=== PATIENT | female | born 1985 | race American Indian/Alaskan Native ===

== ENCOUNTER 2016-08-16 07:39 | Emergency (ER) | payer BC ==
[2016-08-16 07:50] VITALS: BMI 28.3
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
[2016-08-16] MEDS ORDERED: Lidocaine 5% Patch TD SCH (10:00)
[2016-08-16 10:16] VITALS: BP 144/82; PULSE 80; RESP 18; TEMP 98; O2SAT 98
== END 2016-08-16 11:06 | disposition home or self-care (01) ==
LOC: ED 07:39
DX: S39.012A Strain of muscle, fascia and tendon of lower back, initial encounter (principal); X50.9XXA Other and unspecified overexertion or strenuous movements or postures, initial encounter; Y93.89 Activity, other specified; Y92.009 Unspecified place in unspecified non-institutional (private) residence as the place of occurrence of the external cause
CPT/HCPCS: 96372; 99283; J1885

== ENCOUNTER 2016-11-22 21:07 | Emergency (ER) | payer SELFPAY ==
[2016-11-22 21:07] VITALS: BMI 28.3
[2016-11-22 21:15] VITALS: TEMP 98.6
--- NOTE | 2016-11-22 21:52 | ED PDOC ---
Arrival/HPI - General Chief Complaint: Dental Pain Time Seen by Provider: 11/22/16 21:34 Historian: Patient - History of Present Illness Narrative History of Present Illness (Text): 11/22/16 21:48 This 31 yo female presents to this ED c/o toothache x 7 days. Tooth ache is worse today. Denies other complains. Time/Duration: 1 week Quality: Aching Context: Home Past Medical History - Provider Review Nursing Documentation Reviewed: Yes - Past History Past History: No Previous - Infectious Disease Hx of Infectious Diseases: None - Tetanus Immunization Tetanus Immunization: Unknown - Reproductive Menopause: No - Past Medical History Past Medical History: No Previous - Cardiac Hx Cardiac Disorders: No - Pulmonary Hx Respiratory Disorders: No - Neurological Hx Neurological Disorder: No - HEENT Hx HEENT Disorder: No - Renal Hx Renal Disorder: No - Endocrine/Metabolic Hx Endocrine Disorders: No - Hematological/Oncological Hx Blood Disorders: No - Integumentary Hx Dermatological Disorder: No - Musculoskeletal/Rheumatological Hx Musculoskeletal Disorders: Yes Hx Herniated Disk: Yes - Gastrointestinal Hx Gastrointestinal Disorders: No - Genitourinary/Gynecological Hx Genitourinary Disorders: No - Psychiatric Hx Psychophysiologic Disorder: Yes Hx Anxiety: Yes Hx Depression: Yes Hx Substance Use: No - Surgical History Hx Section: Yes (x2) - Anesthesia Hx Anesthesia: Yes Hx Anesthesia Reactions: Yes Hx Malignant Hyperthermia: No - Suicidal Assessment Feels Threatened In Home Enviroment: No Family/Social History - Physician Review Nursing Documentation Reviewed: Yes Family/Social History: No Known Family HX Smoking Status: Former Smoker Hx Alcohol Use: No Hx Substance Use: No Hx Substance Use Treatment: No Allergies/Home Meds Allergies/Adverse Reactions: Allergies No Known Allergies Allergy (Verified 11/22/16 21:14) Review of Systems - Review of Systems Constitutional: Normal. absent: Fatigue, Weight Change, Fevers Eyes: Normal ENT: Other (dental pain) Respiratory: Normal Cardiovascular: Normal Gastrointestinal: Normal Genitourinary Female: Normal Musculoskeletal: Normal Skin: Normal Neurological: Normal Endocrine: Normal Hemo/Lymphatic: Normal Psychiatric: Normal Physical Exam Vital Signs Temp Pulse Resp BP Pulse Ox 11/22/16 22:25 81 16 131/72 100 11/22/16 21:11 98.6 F 79 20 137/91 H 99 Temperature: Afebrile Blood Pressure: Normal Pulse: Regular Respiratory Rate: Normal Appearance: Positive for: Well-Appearing, Non-Toxic, Comfortable Pain Distress: None Mental Status: Positive for: Alert and Oriented X 3 - Systems Exam Head: Present: Atraumatic, Normocephalic Pupils: Present: PERRL Extroacular Muscles: Present: EOMI Conjunctiva: Present: Normal Mouth: Present: Moist Mucous Membranes, Normal Lips, Normal Tounge, Other ( generalized dental caries. no denatl abscess). No: Drooling Pharnyx: Present: Normal. No: ERYTHEMA, EXUDATE, TONSILS ENLARGED Neck: Present: Normal Range of Motion Respiratory/Chest: Present: Clear to Auscultation, Good Air Exchange. No: Respiratory Distress, Accessory Muscle Use Cardiovascular: Present: Regular Rate and Rhythm, Normal S1, S2. No: Murmurs Abdomen: Present: Normal Bowel Sounds. No: Tenderness, Distention, Peritoneal Signs, Rebound, Guarding Upper Extremity: Present: Normal Inspection, Normal ROM, Neurovascularly Intact , Capillary Refill < 2s Lower Extremity: Present: Normal Inspection, NORMAL PULSES, Normal ROM, Capillary Refill < 2 s. No: Edema Neurological: Present: GCS=15, CN II-XII Intact, Speech Normal, Motor Func Grossly Intact, Normal Sensory Function, Normal Cerebellar Funct, Gait Normal Skin: Present: Warm, Dry, Normal Color. No: Rashes Psychiatric: Present: Alert, Oriented x 3 Medical Decision Making ED Course and Treatment: 11/22/16 21:53 Patient appear drug seeking behavior. I spoke with Dr. Mcgee, and reviewed [place] [employer]. Patient has had at least 4 Opiods pain medication within last year. Dr. Mcgee agreed to give 4 tabs of Percocet, and have patient see dentist tomorrow. Dental examination demonstrates generalized dental caries, appears chronic, no dental abscess, no gun swelling or gingivitis, no facial swelling. Re-evaluation Time: 21:55 Reassessment Condition: Re-examined, Improved - Medication Orders Current Medication Orders: Discontinued Medications Clindamycin HCl (Cleocin) 300 mg PO STAT STA PRN Reason: Protocol Stop: 11/22/16 22:03 Last Admin: 11/22/16 22:22 Dose: 300 mg Ketorolac Tromethamine (Toradol) 15 mg IM STAT STA Stop: 11/22/16 22:03 Last Admin: 11/22/16 22:22 Dose: 15 mg Disposition/Present on Arrival - Present on Arrival Any Indicators Present on Arrival: No History of DVT/PE: No History of Uncontrolled Diabetes: No Urinary Catheter: No History of Decub. Ulcer: No History Surgical Site Infection Following: None - Disposition Have Diagnosis and Disposition been Completed?: Yes Diagnosis: Pain due to dental caries, Drug-seeking behavior Disposition: HOME/ ROUTINE Disposition Time: 21:58 Patient Plan: Discharge Condition: GOOD Discharge Instructions (ExitCare): Dental Caries (ED), Toothache (ED) Additional Instructions: Call dentist office for tomorrow for further evaluation. Take medication as instructed. Prescriptions: Chlorhexidine 0.12% [Peridex] 15 ml PO BID #1 bottle Clindamycin [Cleocin] 300 mg PO TID #20 cap oxyCODONE/Acetaminophen [Percocet 5/325 mg Tab] 1 ea PO BID PRN #4 tab PRN Reason: Pain, Severe (8-10) Referrals: Power Levi MD [Primary Care Provider] - Follow up with primary
[2016-11-22 23:21] VITALS: BP 131/72; PULSE 81; RESP 16; O2SAT 100
== END 2016-11-22 22:25 | disposition home or self-care (01) ==
LOC: ED 21:07
DX: K02.9 Dental caries, unspecified (principal); Z76.5 Malingerer [conscious simulation]
CPT/HCPCS: 96372; 99282; J1885

== ENCOUNTER 2016-11-23 12:51 | Emergency (ER) | payer SELFPAY ==
[2016-11-23 12:51] VITALS: BMI 28.3
--- NOTE | 2016-11-23 13:07 | ED PDOC ---
Arrival/HPI - General Chief Complaint: Dental Pain Time Seen by Provider: 11/23/16 12:56 Historian: Patient - History of Present Illness Narrative History of Present Illness (Text): 11/23/16 13:04 31yo female present with biba for toothache x 8days. She was seen here last night and DC home with pain medication and Clindamycin. she claimed that she couldn't afford it so she came to the ED. Denies any other complaint. Past Medical History - Provider Review Nursing Documentation Reviewed: Yes - Past History Past History: No Previous - Infectious Disease Hx of Infectious Diseases: None - Tetanus Immunization Tetanus Immunization: Unknown - Past Medical History Past Medical History: No Previous - Cardiac Hx Cardiac Disorders: No - Pulmonary Hx Respiratory Disorders: No - Neurological Hx Neurological Disorder: No - HEENT Hx HEENT Disorder: No - Renal Hx Renal Disorder: No - Endocrine/Metabolic Hx Endocrine Disorders: No - Hematological/Oncological Hx Blood Disorders: No - Integumentary Hx Dermatological Disorder: No - Musculoskeletal/Rheumatological Hx Musculoskeletal Disorders: Yes Hx Herniated Disk: Yes - Gastrointestinal Hx Gastrointestinal Disorders: No - Genitourinary/Gynecological Hx Genitourinary Disorders: No - Psychiatric Hx Psychophysiologic Disorder: Yes Hx Anxiety: Yes Hx Depression: Yes Hx Substance Use: No - Surgical History Hx Section: Yes (x2) - Anesthesia Hx Anesthesia: Yes Hx Anesthesia Reactions: Yes Hx Malignant Hyperthermia: No - Suicidal Assessment Feels Threatened In Home Enviroment: No Family/Social History - Physician Review Nursing Documentation Reviewed: Yes Family/Social History: Unknown Family HX Smoking Status: Former Smoker Hx Alcohol Use: No Hx Substance Use: No Hx Substance Use Treatment: No Allergies/Home Meds Allergies/Adverse Reactions: Allergies No Known Allergies Allergy (Verified 11/22/16 21:14) Review of Systems - Physician Review All systems were reviewed & negative as marked: Yes - Review of Systems Constitutional: Normal Eyes: Normal ENT: Other (Toothache) Respiratory: Normal Cardiovascular: Normal Gastrointestinal: Normal Genitourinary Female: Normal Musculoskeletal: Normal Skin: Normal Neurological: Normal Endocrine: Normal Hemo/Lymphatic: Normal Psychiatric: Normal Physical Exam Vital Signs Reviewed: Yes Temperature: Afebrile Blood Pressure: Normal Pulse: Regular Respiratory Rate: Normal Appearance: Positive for: Well-Appearing, Non-Toxic, Comfortable Pain Distress: None Mental Status: Positive for: Alert and Oriented X 3 - Systems Exam Head: Present: Atraumatic, Normocephalic Pupils: Present: PERRL Extroacular Muscles: Present: EOMI Conjunctiva: Present: Normal Mouth: Present: Moist Mucous Membranes, Other (Poor dentition in general. No gingival swelling noted) Neck: Present: Normal Range of Motion Respiratory/Chest: Present: Clear to Auscultation, Good Air Exchange. No: Respiratory Distress, Accessory Muscle Use Cardiovascular: Present: Regular Rate and Rhythm, Normal S1, S2. No: Murmurs Abdomen: Present: Normal Bowel Sounds. No: Tenderness, Distention, Peritoneal Signs Back: Present: Normal Inspection Upper Extremity: Present: Normal Inspection. No: Cyanosis, Edema Lower Extremity: Present: Normal Inspection. No: Edema Neurological: Present: GCS=15, CN II-XII Intact, Speech Normal Skin: Present: Warm, Dry, Normal Color. No: Rashes Psychiatric: Present: Alert, Oriented x 3, Normal Insight, Normal Concentration Medical Decision Making ED Course and Treatment: 11/23/16 13:15 Pt's chart from last night was reviewed. She was seen here for same dental caries and was DC home with #4tabs of Percocet and clindamycin. Her [place] RX reviewed indicated 6opids refill within a year and drug seeking behavior was suspected. PT was clearly advised today that she will not get opids for her pain in ED. She kept exhibiting drug seeking behavior. She will be treated with Toradol and clindamycin and DC home. she was advised to f/u with [facility] or [facility] . - Medication Orders Current Medication Orders: Clindamycin HCl (Cleocin) 300 mg PO STAT STA PRN Reason: Protocol Stop: 11/23/16 13:03 Ketorolac Tromethamine (Toradol) 60 mg IM STAT STA Stop: 11/23/16 13:03 Disposition/Present on Arrival - Present on Arrival Any Indicators Present on Arrival: No History of DVT/PE: No History of Uncontrolled Diabetes: No Urinary Catheter: No History of Decub. Ulcer: No History Surgical Site Infection Following: None - Disposition Have Diagnosis and Disposition been Completed?: Yes Diagnosis: Dental caries Disposition: HOME/ ROUTINE Disposition Time: 13:10 Patient Plan: Discharge Condition: STABLE Discharge Instructions (ExitCare): Dental Caries (ED) Additional Instructions: Fill out your prescription and follow up with a Dentist Return to ED for any symptoms Referrals: Dilshad Villavicencio, LO [Non-Staff] - Follow up with primary
[2016-11-23 13:10] VITALS: RESP 18; TEMP 98.7
[2016-11-23 14:57] VITALS: BP 134/66; PULSE 72; O2SAT 99
== END 2016-11-23 13:45 | disposition home or self-care (01) ==
LOC: ED 12:51
DX: K02.9 Dental caries, unspecified (principal)
CPT/HCPCS: 96372; 99282; J1885

== ENCOUNTER 2017-03-13 18:13 | Emergency (ER) | payer BC ==
[2017-03-13 18:23] VITALS: TEMP 98.3; BMI 27.4
[2017-03-13] MEDS ORDERED: Sodium Chloride 0.9% 1,000 ML IV STA (18:43)
[2017-03-13 18:54] LABS: URINE BILIRUBIN NEGATIVE (NEGATIVE); URINE BLOOD LARGE (NEGATIVE); URINE GLUCOSE (UA) NEGATIVE (NEGATIVE); URINE KETONE TRACE mg/dL (NEGATIVE); URINE LEUKOCYTE ESTERASE NEGATIVE Leu/uL (NEGATIVE); URINE PROTEIN 30 mg/dL (<30 mg/dL); URINE UROBILINOGEN 0.2 E.U./dL (<1 E.U./dL)
--- NOTE | 2017-03-13 18:54 | ED PDOC ---
Arrival/HPI - General Chief Complaint: Female Genitourinary Time Seen by Provider: 03/13/17 18:18 Historian: Patient - History of Present Illness Narrative History of Present Illness (Text): 03/13/17 18:51 31yr old presents today with vaginal bleeding and lower abdominal cramping that started today. pt states she has been on PCN and tylenol #3 for recent dental surgery 5 days ago. pt states her LMP was Jan 05. pt states she was questioning terminating the but has not made a final decision yet. pt denies fever/chills. denies urinary symptoms. no cp or sob. no vomiting/diarrhea , + occasional nausea. no dizziness or weakness. no other complaints. Symptom Onset: Sudden Symptom Course: Unchanged Quality: Cramping Severity Level: 4 Past Medical History - Provider Review Nursing Documentation Reviewed: Yes - Travel History Have you recently traveled outside [place] w/in the past 3 mons?: No - Past History Past History: No Previous - Infectious Disease Hx of Infectious Diseases: None - Tetanus Immunization Tetanus Immunization: Unknown - Past Medical History Past Medical History: No Previous - Cardiac Hx Cardiac Disorders: No - Pulmonary Hx Respiratory Disorders: No - Neurological Hx Neurological Disorder: No - HEENT Hx HEENT Disorder: No - Renal Hx Renal Disorder: No - Endocrine/Metabolic Hx Endocrine Disorders: No - Hematological/Oncological Hx Blood Disorders: No - Integumentary Hx Dermatological Disorder: No - Musculoskeletal/Rheumatological Hx Musculoskeletal Disorders: Yes Hx Herniated Disk: Yes - Gastrointestinal Hx Gastrointestinal Disorders: No - Genitourinary/Gynecological Hx Genitourinary Disorders: No - Psychiatric Hx Psychophysiologic Disorder: Yes Hx Anxiety: Yes Hx Depression: Yes Hx Substance Use: No - Surgical History Hx Section: Yes (x2) - Anesthesia Hx Anesthesia: Yes Hx Anesthesia Reactions: Yes Hx Malignant Hyperthermia: No - Suicidal Assessment Feels Threatened In Home Enviroment: No Family/Social History - Physician Review Nursing Documentation Reviewed: Yes Family/Social History: Unknown Family HX Smoking Status: Current Some Days Smoker Hx Alcohol Use: No Hx Substance Use: No Hx Substance Use Treatment: No Allergies/Home Meds Allergies/Adverse Reactions: Allergies No Known Allergies Allergy (Verified 03/13/17 18:22) Home Medications: Home Meds Medication Instructions Recorded Confirmed Penicillin VK [Penicillin VK Tab] 250 mg PO BID 03/13/17 03/13/17 Review of Systems - Review of Systems Constitutional: absent: Fatigue, Fevers Respiratory: absent: SOB, Cough Cardiovascular: absent: Chest Pain, Palpitations Gastrointestinal: Abdominal Pain, Nausea. absent: Constipation, Diarrhea, Vomiting Genitourinary Female: Vaginal Bleeding. absent: Dysuria, Frequency, Hematuria, Vaginal Discharge Musculoskeletal: absent: Arthralgias, Back Pain, Neck Pain Skin: absent: Rash, Pruritis Neurological: absent: Headache, Dizziness Psychiatric: absent: Anxiety, Depression Physical Exam Vital Signs Reviewed: Yes Vital Signs Temp Pulse Resp BP Pulse Ox 03/13/17 21:00 67 18 120/70 100 03/13/17 19:42 78 18 108/61 100 03/13/17 18:22 98.3 F 89 16 110/72 98 Temperature: Afebrile Blood Pressure: Normal Pulse: Regular Respiratory Rate: Normal Appearance: Positive for: Well-Appearing, Non-Toxic, Comfortable Pain Distress: None Mental Status: Positive for: Alert and Oriented X 3 - Systems Exam Head: Present: Atraumatic Neck: Present: Normal Range of Motion Respiratory/Chest: Present: Clear to Auscultation, Good Air Exchange. No: Respiratory Distress, Accessory Muscle Use Cardiovascular: Present: Regular Rate and Rhythm, Normal S1, S2. No: Murmurs Abdomen: Present: Tenderness (minimal suprapubic tenderness), Normal Bowel Sounds, Scars ( scar). No: Distention, Peritoneal Signs, Rebound, Guarding Genitourinary/Pelvic Exam: Present: Normal External Genitalia, Vaginal Bleeding (minimal amount of bloody discharge noted), Cervical os Closed, Other ( chaparoned by Sheldon Rodriguez; ). No: Vaginal Discharge, Vaginal Lesions, Adenexal Tenderness, Adenexal Mass, Cervical Motion Tendernes, Odor Neurological: Present: GCS=15 Skin: Present: Warm, Dry, Normal Color. No: Rashes Psychiatric: Present: Alert, Oriented x 3 Medical Decision Making ED Course and Treatment: 03/13/17 19:37 Patient is nontoxic well appearing in no distress. vital signs are stable. CBC wnl CMP wnl Beta hCG 4861.80 TYPE AND SCREEN: o+ Urinalysis: + trace ketones, large blood, mod bacteria, no leukocytes Ultrasound: FINDINGS: Gestation: A single intrauterine gestational sac is identified with pole. No heart motion is visualized. The estimated gestational age is 8 weeks 5 days. Placenta/amniotic fluid: Cannot be adequately evaluated due to the early gestational age. Uterus/cervix: The uterus measures 8.7 x 7.0 x 7.7 cm. The cervical length is 3.3 cm. No myometrial mass. Ovaries: The left ovary measures 4.1 x 2.1 x 2.2 cm. Within the left ovary, there is a thick walled complex cyst or corpus luteum cyst measuring 2.4 x 2.0 x 1.9 cm. Free fluid: There is trace free fluid within the cul-de-sac. Other findings: The right or right measures 3.4 x 2.2 x 1.8 cm. IMPRESSION: 1. A single intrauterine gestational sac is identified with pole. No heart motion is visualized. The findings are diagnostic of failure based on the U Multispecialty Consensus 2. There is trace free fluid within the cul-de-sac. 3. The estimated gestational age is 8 weeks 5 days. 4. Within the left ovary, there is a thick walled complex cyst or corpus luteum cyst measuring 2.4 x 2.0 x 1.9 cm. Case discussed with dr. Berman; discussed demise; he advised having patient f/u with MANUFACTURERS REPRESENTATIVE tomorrow/ within 2 days. Discussed all the results the patient stressed importance of f/u with MANUFACTURERS REPRESENTATIVE tomorrow. advised immediate return if symptoms worsen,persist or if new symptoms develop. pt verbalized understand of d/c instruction and need for IMMEDIATE f/u with MANUFACTURERS REPRESENTATIVE. pt states her MANUFACTURERS REPRESENTATIVE is dr. Dereck duke. she will call her tomorrow to schedule appointment. Impression: demise, UTI Tylenol every 4 hours as needed for pain Increase fluids Nitrofurantoin; 1 tablet twice daily x 10 days Followup with her occupational therapy director tomorrow. Return immediately if symptoms worsen persist or if new symptoms develop: High fevers, heavy bleeding, severe abdominal pain, vomiting, diarrhea, dizziness or weakness or any other concerning symptoms develop. - Lab Interpretations Lab Results: 03/13/17 19:00 03/13/17 19:00 Lab Results 03/13/17 19:00: WBC 7.1, RBC 3.43 L, Hgb 10.6 L, Hct 31.2 L, MCV 91.0, MCH 30.9 , MCHC 34.0, RDW 12.7, Plt Count 300, MPV 8.8, Gran % 52.7, Lymph % (Auto) 41.8 H, [place] % (Auto) 3.4, Eos % (Auto) 2.0, Baso % (Auto) 0.1, Gran # 3.72, Lymph # 3.0, [place] # 0.2, Eos # 0.1, Baso # 0.01 03/13/17 19:00: Blood Type O POSITIVE, Antibody Screen Negative, BBK History Checked Patient has bt 03/13/17 19:00: Beta HCG, Quant 4861.80 H 03/13/17 19:00: Sodium 142, Potassium 4.2, Chloride 107, Carbon Dioxide 26, Anion Gap 13, BUN 12, Creatinine 0.7, Est GFR ( Amer) > 60, Est GFR (Non- Af Amer) > 60, Random Glucose 78, Calcium 9.6, Total Bilirubin 0.3, AST 21, ALT 24, Alkaline Phosphatase 36 L, Total Protein 7.0, Albumin 4.3, Globulin 2.7, Albumin/Globulin Ratio 1.6 03/13/17 18:50: Urine Color Yellow, Urine Appearance Sl cloudy, Urine pH 6.0, Ur Specific [place] 1.025, Urine Protein 30 H, Urine Glucose (UA) Negative, Urine Ketones Trace H, Urine Blood Large H, Urine Nitrate Negative, Urine Bilirubin Negative, Urine Urobilinogen 0.2, Ur Leukocyte Esterase Negative, Urine RBC 2 - 5, Urine WBC 0 - 2, Ur Epithelial Cells 10 - 12, Urine Bacteria Mod - RAD Interpretation Radiology Orders: 03/13/17 19:14 OB TRANSVAGINAL [US] Stat - Medication Orders Current Medication Orders: Discontinued Medications Acetaminophen (Tylenol 325mg Tab) 975 mg PO STAT STA Stop: 03/13/17 18:55 Last Admin: 03/13/17 19:05 Dose: 975 mg MAR Pain/Vitals Document 03/13/17 19:05 CNR (Rec: 03/13/17 19:05 CNR [id number] Pain Reassessment Is This A Pain ReAssessment? Yes Sleep Is patient sleeping during reassessment? No Presence of Pain Presence of Pain Yes Pain Scale Used Pain Scale Used Numeric Location Upper or Lower Lower Pain Location Body Site Abdomen Description Constant Intensity 6 Scale Used Numeric Sodium Chloride (Sodium Chloride 0.9%) 1,000 mls @ 999 mls/hr IV .Q1H1M STA Stop: 03/13/17 19:43 Last Admin: 03/13/17 19:05 Dose: 999 mls/hr eMAR Start Stop Document 03/13/17 19:05 CNR (Rec: 03/13/17 19:06 [place]NR [facility] [email or web address] Intravenous Solution Start Date 03/13/17 Start Time 19:06 Disposition/Present on Arrival - Present on Arrival Any Indicators Present on Arrival: No History of DVT/PE: No History of Uncontrolled Diabetes: No Urinary Catheter: No History of Decub. Ulcer: No History Surgical Site Infection Following: None - Disposition Have Diagnosis and Disposition been Completed?: Yes Diagnosis: demise, UTI (urinary tract infection) Disposition: HOME/ ROUTINE Disposition Time: 21:16 Patient Plan: Discharge Patient Problems: Current Active Problems Problem Status Onset demise Acute UTI (urinary tract infection) Acute Condition: GOOD Discharge Instructions (ExitCare): Urinary Tract Infection in Women (ED) Additional Instructions: Tylenol every 4 hours as needed for pain nitrofurantoin; 1 tablet twice daily x 10 days Increase fluids Followup with her occupational therapy director tomorrow. Return immediately if symptoms worsen persist or if new symptoms develop: High fevers, heavy bleeding, severe abdominal pain, vomiting, diarrhea, dizziness or weakness or any other concerning symptoms develop. Prescriptions: Nitrofurantoin Macrocrystals [Macrobid] 100 mg PO BID #20 cap Referrals: Power Levi MD [Primary Care Provider] - Follow up with primary [facility] [place] [facility] [place] - [facility] with [facility]] - Follow up with primary Melchor Berman MD [Staff Provider] - Follow up with primary Forms: [employer] (E[place]ian), WORK NOTE
[2017-03-13 18:55] LABS: URINE APPEARANCE SL CLOUDY (CLEAR); URINE COLOR YELLOW (YELLOW)
[2017-03-13 19:03] LABS: URINE BACTERIA MOD (NEG); URINE WBC 0 - 2 /hpf (0-6)
[2017-03-13 19:13] LABS: BASO # 0.01 K/mm3 (0.0-2.0); BASO % 0.1 % (0.0-3.0); EOS # 0.1 (0.0-0.7); GRAN # 3.72 (1.4-6.5); GRAN % 52.7 % (50.0-68.0); HEMATOCRIT 31.2 % (36.0-48.0); LYMPH % 41.8 % (22.0-35.0); MEAN CORPUSCULAR HEMOGLOBIN 30.9 pg (25.0-35.0); MEAN PLATELET VOLUME 8.8 fl (7.0-11.0); MONO # 0.2 (0.1-0.6); MONO % 3.4 % (1.0-6.0); RED CELL DISTRIBUTION WIDTH 12.7 % (11.5-14.5); WHITE BLOOD COUNT 7.1 10^3/ul (4.5-11.0)
[2017-03-13 19:20] LABS: ALB/GLOB RATIO 1.6 (1.1-1.8); ALKALINE PHOSPHATASE 36 U/L (38-126); ALT/SGPT 24 U/L (7-56); AST/SGOT 21 U/L (14-36); BILIRUBIN,TOTAL 0.3 mg/dL (0.2-1.3); BLOOD UREA NITROGEN 12 mg/dL (7-21); CALCIUM 9.6 mg/dL (8.4-10.5); CARBON DIOXIDE 26 mmol/L (21-33); CHLORIDE 107 mmol/L (98-107); GFR AFRICAN-AMERICAN > 60; GLUCOSE,RANDOM 78 mg/dL (70-110); POTASSIUM 4.2 mmol/L (3.6-5.0); SODIUM 142 mmol/L (132-148)
[2017-03-13 19:43] VITALS: RESP 18; O2SAT 100
--- NOTE | 2017-03-13 20:52 | US ---
EXAM: US First Trimester, Transabdominal US , Transvaginal EXAM DATE/TIME: 03/13/2017 7:14 PM CLINICAL HISTORY: The patient age is 31 years old and is female; Pain; complicated by abdominal or pelvic pain; Lower; First trimester; Gestational age or lmp: [id number]; ; Additional info: Bleeding/pain/ Facility exam id and description: Us obtransvag ob transvaginal TECHNIQUE: Real-time transabdominal and transvaginal obstetrical ultrasound of the maternal pelvis and a first trimester with image documentation. Transvaginal imaging was used for better evaluation of the fetus and adnexa. COMPARISON: US - OB TRANSVAGINAL 2015-03-04 13:21 FINDINGS: Gestation: A single intrauterine gestational sac is identified with pole. No heart motion is visualized. The estimated gestational age is 8 weeks 5 days. Placenta/amniotic fluid: Cannot be adequately evaluated due to the early gestational age. Uterus/cervix: The uterus measures 8.7 x 7.0 x 7.7 cm. The cervical length is 3.3 cm. No myometrial mass. Ovaries: The left ovary measures 4.1 x 2.1 x 2.2 cm. Within the left ovary, there is a thick walled complex cyst or corpus luteum cyst measuring 2.4 x 2.0 x 1.9 cm. Free fluid: There is trace free fluid within the cul-de-sac. Other findings: The right or right measures 3.4 x 2.2 x 1.8 cm. IMPRESSION: 1. A single intrauterine gestational sac is identified with pole. No heart motion is visualized. The findings are diagnostic of failure based on the U Multispecialty Consensus Conference on Early First Trimester Diagnosis of Miscarriage and Exclusion of a Viable Intrauterine - February 2012. 2. There is trace free fluid within the cul-de-sac. 3. The estimated gestational age is 8 weeks 5 days. 4. Within the left ovary, there is a thick walled complex cyst or corpus luteum cyst measuring 2.4 x 2.0 x 1.9 cm.
[2017-03-13 21:01] VITALS: BP 120/70; PULSE 67
== END 2017-03-13 21:29 | disposition home or self-care (01) ==
LOC: ED 18:13
DX: O36.4XX0 Maternal care for intrauterine death, not applicable or unspecified (principal); O23.41 Unspecified infection of urinary tract in pregnancy, first trimester; Z3A.08 8 weeks gestation of pregnancy; F17.200 Nicotine dependence, unspecified, uncomplicated
CPT/HCPCS: 76817; 80053; 81001; 84702; 85025; 86850; 86900; 87086; 87181; 99284; J7040

== ENCOUNTER 2017-06-09 10:48 | Emergency (ER) | payer BC ==
[2017-06-09 10:59] VITALS: BMI 28.1
[2017-06-09 11:02] VITALS: RESP 18; TEMP 98.2
--- NOTE | 2017-06-09 12:15 | ED PDOC ---
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 06/09/17 12:12 Time/Duration: Other (1 day) Symptom Onset: Gradual Symptom Course: Unchanged Context: Sitting Past Medical History - Provider Review Nursing Documentation Reviewed: Yes - Travel History Have you recently traveled outside [place] w/in the past 3 mons?: No - Past History Past History: No Previous - Infectious Disease Hx of Infectious Diseases: None - Tetanus Immunization Tetanus Immunization: Unknown - Past Medical History Past Medical History: No Previous - Cardiac Hx Cardiac Disorders: No - Pulmonary Hx Respiratory Disorders: No - Neurological Hx Neurological Disorder: No - HEENT Hx HEENT Disorder: No - Renal Hx Renal Disorder: No - Endocrine/Metabolic Hx Endocrine Disorders: No - Hematological/Oncological Hx Blood Disorders: No - Integumentary Hx Dermatological Disorder: No - Musculoskeletal/Rheumatological Hx Musculoskeletal Disorders: No - Gastrointestinal Hx Gastrointestinal Disorders: No - Genitourinary/Gynecological Hx Genitourinary Disorders: Yes Other/Comment: HX: SPONTANEOUS - Psychiatric Hx Psychophysiologic Disorder: Yes Hx Anxiety: Yes Hx Depression: Yes Hx Emotional Abuse: No Hx Panic Disorder: Yes Hx Physical Abuse: No Hx Substance Use: No - Surgical History Hx Section: Yes (x2) - Anesthesia Hx Anesthesia: Yes Hx Anesthesia Reactions: No Hx Malignant Hyperthermia: No - Suicidal Assessment Feels Threatened In Home Enviroment: No Family/Social History - Physician Review Nursing Documentation Reviewed: Yes Family/Social History: No Known Family HX Smoking Status: black&mild Hx Alcohol Use: No Hx Substance Use: No Hx Substance Use Treatment: No Allergies/Home Meds Allergies/Adverse Reactions: Allergies No Known Allergies Allergy (Verified 03/13/17 18:22) Home Medications: Home Meds Medication Instructions Recorded Confirmed No Known Home Med 03/15/17 06/09/17 Review of Systems - Review of Systems Constitutional: Normal Eyes: Other (right eyelid swelling) ENT: Normal Respiratory: Normal Cardiovascular: Normal Gastrointestinal: Normal Genitourinary Female: Normal Musculoskeletal: Other (right lower leg calf swelling) Skin: Normal Neurological: Other (right arm tingling) Endocrine: Normal Hemo/Lymphatic: Normal Psychiatric: Normal Physical Exam Vital Signs Reviewed: Yes Vital Signs Temp Pulse Resp BP Pulse Ox 06/09/17 12:22 67 18 118/79 99 06/09/17 11:02 98.2 F 69 18 122/83 99 Temperature: Afebrile Blood Pressure: Hypertensive Pulse: Regular Respiratory Rate: Normal Appearance: Positive for: Well-Appearing, Non-Toxic, Comfortable Pain Distress: None Mental Status: Positive for: Alert and Oriented X 3 - Systems Exam Head: Present: Atraumatic, Normocephalic Pupils: Present: PERRL Extroacular Muscles: Present: EOMI Conjunctiva: Present: Normal Ears: Present: Normal Mouth: Present: Moist Mucous Membranes Pharnyx: Present: Normal Nose (External): Present: Atraumatic Nose (Internal): Present: Normal Inspection Neck: Present: Normal Range of Motion Respiratory/Chest: Present: Clear to Auscultation, Good Air Exchange Cardiovascular: Present: Regular Rate and Rhythm Abdomen: No: Tenderness, Distention, Normal Bowel Sounds, Peritoneal Signs, Rebound, Guarding, McBurney's Point Tender, Rovsing's Sign Present, Hernias, Feeding Tubes, Ostomy Tubes, Mass/Organomegaly, Scars, Other Back: Present: Normal Inspection Upper Extremity: Present: Normal Inspection, Normal ROM, NORMAL PULSES, Neurovascularly Intact, Capillary Refill < 2s, Norm 2-Pt Discrimination. 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 You were otherwise breathing easily, smiling and laughing, good strength/sensation, walking easily , clear lungs, no abdomen tenderness; left upper eyelid swelling without redness , without foreign body, positive vision; right arm good strength/sensation/ pulses; right lower leg calf mild swelling without sign of infection/redness and no bony tenderness and with good pulses; no fever temp 98.2, stable heart rate 69, stable breathing rate 18, excellent oxygen level 99% room air, elevated blood pressure 122/83 which we recommend repeat in 2-3 days primary care office to determine further treatment, urine test negative, radiology CT head no acute, right lower leg ultrasound no acute sign of blood clot, observation done in the ED with improvement, counselled to use moist warm cloth daily for left upper eyelid to loose oil glands to prevent congestion and infection, monitor symptoms and thus discharged home. 1. Recommend rest and heating pad. 2. Recommend follow-up primary care 2-3 days to review symptoms, referral to neurology clinic, ophthalmology clinic. 3. If any worsening pain, fever, chills, nausea, vomiting, difficulty breathing, numbness, loss of limb function, pain with urination or any medical condition then return to the ED. PROCEDURE: CT HEAD WITHOUT CONTRAST. Dictator : Susie Blanton MD Report Date : 06/09/2017 13:44:02 IMPRESSION: Normal CT of the Head. If symptoms persist MRI is suggested for further evaluation. 06/09/17 14:18 - RAD Interpretation Radiology Orders: 06/09/17 11:44 DUPLEX LOWER EXTRM VEIN RIGHT [US] Stat 06/09/17 11:45 HEAD W/O CONTRAST [CT] Stat Disposition/Present on Arrival - Present on Arrival Any Indicators Present on Arrival: No History of DVT/PE: No History of Uncontrolled Diabetes: No Urinary Catheter: No History of Decub. 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 You were otherwise breathing easily, smiling and laughing, good strength/sensation, walking easily , clear lungs, no abdomen tenderness; left upper eyelid swelling without redness , without foreign body, positive vision; right arm good strength/sensation/ pulses; right lower leg calf mild swelling without sign of infection/redness and no bony tenderness and with good pulses; no fever temp 98.2, stable heart rate 69, stable breathing rate 18, excellent oxygen level 99% room air, elevated blood pressure 122/83 which we recommend repeat in 2-3 days primary care office to determine further treatment, urine test negative, radiology CT head no acute, right lower leg ultrasound no acute sign of blood clot, observation done in the ED with improvement, counselled to use moist warm cloth daily for left upper eyelid to loose oil glands to prevent congestion and infection, monitor symptoms and thus discharged home. 1. Recommend rest and heating pad. 2. Recommend follow-up primary care 2-3 days to review symptoms, referral to neurology clinic, ophthalmology clinic. 3. If any worsening pain, fever, chills, nausea, vomiting, difficulty breathing, numbness, loss of limb function, pain with urination or any medical condition then return to the ED. Referrals: Power Levi MD [Primary Care Provider] - Follow up with primary Forms: [email or web address] ([place]an)
--- NOTE | 2017-06-09 13:45 | CT ---
PROCEDURE: CT HEAD WITHOUT CONTRAST. HISTORY: 31yoF, with right arm tingling COMPARISON: None available. TECHNIQUE: Axial computed tomography images were obtained through the head/brain without intravenous contrast. Radiation dose: Total exam DLP = 852 mGy-cm. This CT exam was performed using one or more of the following dose reduction techniques: Automated exposure control, adjustment of the mA and/or kV according to patient size, and/or use of iterative reconstruction technique. FINDINGS: HEMORRHAGE: No intracranial hemorrhage. BRAIN: No mass effect or edema. No cortical effacement is seen. No infarct is identified. No appreciable mass lesion is noted. VENTRICLES: Unremarkable. No hydrocephalus. CALVARIUM: Unremarkable. PARANASAL SINUSES: Unremarkable as visualized. No significant inflammatory changes. MASTOID AIR CELLS: Unremarkable as visualized. No inflammatory changes. OTHER FINDINGS: None. IMPRESSION: Normal CT of the Head. If symptoms persist MRI is suggested for further evaluation.
[2017-06-09 14:27] VITALS: BP 116/71; PULSE 65; O2SAT 100
--- NOTE | 2017-06-11 17:17 | US ---
PROCEDURE: Right lower extremity venous US HISTORY: Leg pain and swelling. Evaluate for DVT. PHYSICIAN(S): Ayad Matos M.D. TECHNIQUE: Duplex sonography and color-flow Doppler with graded compression were used to evaluate the deep venous system of the right lower extremity. FINDINGS: The visualized deep venous system of the right lower extremity is sonographically normal and compressible. Normal waveforms and augmentation are seen. There is no sonographic evidence for deep venous thrombosis in the visualized segments of the right lower extremity. IMPRESSION: 1. No sonographic evidence for deep venous thrombosis in the visualized segments of the right lower extremity.
== END 2017-06-09 14:28 | disposition home or self-care (01) ==
LOC: ED 10:48
DX: M79.669 Pain in unspecified lower leg (principal); R20.2 Paresthesia of skin

== ENCOUNTER 2017-09-19 11:13 | Emergency (ER) | payer SELFPAY ==
[2017-09-19 11:18] VITALS: BMI 45.5
[2017-09-19 11:30] VITALS: RESP 18; TEMP 98.3
[2017-09-19 12:19] LABS: URINE BILIRUBIN NEGATIVE (NEGATIVE); URINE BLOOD SMALL (NEGATIVE); URINE GLUCOSE (UA) NEGATIVE (NEGATIVE); URINE LEUKOCYTE ESTERASE SMALL Leu/uL (NEGATIVE); URINE PROTEIN 30 mg/dL (<30 mg/dL); URINE UROBILINOGEN 0.2 E.U./dL (<1 E.U./dL)
[2017-09-19 12:21] LABS: ALB/GLOB RATIO 1.7 (1.1-1.8); ALBUMIN 4.4 g/dL (3.0-4.8); ALT/SGPT 25 U/L (7-56); AST/SGOT 16 U/L (14-36); BLOOD UREA NITROGEN 12 mg/dL (7-21); GFR AFRICAN-AMERICAN > 60; GFR NON-AFRICAN AMERICAN > 60
[2017-09-19 12:22] LABS: URINE APPEARANCE CLEAR (CLEAR); URINE COLOR YELLOW (YELLOW)
[2017-09-19 12:35] LABS: URINE AMORPHOUS SEDIMENT FEW; URINE BACTERIA MANY (NEG)
--- NOTE | 2017-09-19 12:50 | CT ---
PROCEDURE: CT Abdomen and Pelvis without intravenous contrast HISTORY: b/l flank pain with hematuria COMPARISON: None. TECHNIQUE: Without contrast.. Contrast Dose: Radiation dose: Total exam DLP = Total exam DLP = 378 mGy-cm. This CT exam was performed using one or more of the following dose reduction techniques: Automated exposure control, adjustment of the mA and/or kV according to patient size, and/or use of iterative reconstruction technique. FINDINGS: LOWER THORAX: Unremarkable. LIVER: Unremarkable. No gross lesion or ductal dilatation. GALLBLADDER AND BILE DUCTS: Unremarkable. PANCREAS: Unremarkable. No gross lesion or ductal dilatation. SPLEEN: Unremarkable. ADRENALS: Unremarkable. No mass. KIDNEYS AND URETERS: Unremarkable. No hydronephrosis. No solid mass. VASCULATURE: Unremarkable. No aortic aneurysm. BOWEL: Unremarkable. No obstruction. No gross mural thickening. APPENDIX: Unremarkable. Normal appendix. PERITONEUM: There is a small amount of free fluid in the cul-de-sac in the right pericolic gutter LYMPH NODES: Unremarkable. No enlarged lymph nodes. BLADDER: Unremarkable. REPRODUCTIVE: Bilateral ovarian cysts. BONES: No acute fracture. OTHER FINDINGS: None. IMPRESSION: Bilateral ovarian cysts.There is a small amount of free fluid in the cul-de-sac in the right pericolic gutter
[2017-09-19 13:11] LABS: BASO # 0.01 K/mm3 (0.0-2.0); BASO % 0.2 % (0.0-3.0); EOS # 0.1 (0.0-0.7); GRAN # 3.76 (1.4-6.5); GRAN % 62.7 % (50.0-68.0); HEMOGLOBIN 11.8 g/dL (12.0-16.0); LYMPH # 1.8 (1.2-3.4); LYMPH % 30.1 % (22.0-35.0); MEAN CELL VOLUME 93.5 fl (80.0-105.0); MEAN CORPUSCULAR HEMOGLOBIN 31.7 pg (25.0-35.0); MEAN CORPUSCULAR HGB CONC 33.9 g/dl (31.0-37.0); MEAN PLATELET VOLUME 9.7 fl (7.0-11.0); MONO # 0.4 (0.1-0.6); RBC 3.72 10^6/uL (3.5-6.1)
[2017-09-19 13:19] VITALS: BP 129/80; PULSE 72; O2SAT 98
--- NOTE | 2017-09-19 15:21 | ED PDOC ---
Arrival/HPI - General Chief Complaint: Female Genitourinary Time Seen by Provider: 09/19/17 11:13 Historian: Patient - History of Present Illness Narrative History of Present Illness (Text): 09/19/17 11:40 A 31 year old female presents to the emergency department complaining of dysuria and increasing urinary frequency for the past several days. Reported to her PMD a couple days ago, was prescribed antibiotics, but notes she did not fill prescription. Patient reports mild back pain and questionable blood in urine. Patient denies any vaginal bleeding or discharge, nausea, vomiting, diarrhea or any other complaints at this time. Time/Duration: < week Symptom Onset: Sudden Symptom Course: Unchanged Activities at Onset: Rest Context: Home Past Medical History - Provider Review Nursing Documentation Reviewed: Yes - Past History Past History: No Previous - Infectious Disease Hx of Infectious Diseases: None - Tetanus Immunization Tetanus Immunization: Unknown - Reproductive Menopause: No - Past Medical History Past Medical History: No Previous - Cardiac Hx Cardiac Disorders: No - Pulmonary Hx Respiratory Disorders: No - Neurological Hx Neurological Disorder: No - HEENT Hx HEENT Disorder: No - Renal Hx Renal Disorder: No - Endocrine/Metabolic Hx Endocrine Disorders: No - Hematological/Oncological Hx Blood Disorders: No - Integumentary Hx Dermatological Disorder: No - Musculoskeletal/Rheumatological Hx Musculoskeletal Disorders: No - Gastrointestinal Hx Gastrointestinal Disorders: No - Genitourinary/Gynecological Hx Genitourinary Disorders: Yes Hx Urinary Tract Infection: Yes Other/Comment: HX: SPONTANEOUS - Psychiatric Hx Psychophysiologic Disorder: Yes Hx Anxiety: Yes Hx Depression: Yes Hx Emotional Abuse: No Hx Panic Disorder: Yes Hx Physical Abuse: No Hx Substance Use: No - Surgical History Hx Section: Yes (x2) - Anesthesia Hx Anesthesia: Yes Hx Anesthesia Reactions: No Hx Malignant Hyperthermia: No - Suicidal Assessment Feels Threatened In Home Enviroment: No Family/Social History - Physician Review Nursing Documentation Reviewed: Yes Family/Social History: No Known Family HX Smoking Status: Current Some Days Smoker Hx Alcohol Use: No Hx Substance Use: No Hx Substance Use Treatment: No Allergies/Home Meds Allergies/Adverse Reactions: Allergies No Known Allergies Allergy (Verified 09/19/17 11:30) Home Medications: Home Meds Medication Instructions Recorded Confirmed No Known Home Med 03/15/17 09/19/17 Review of Systems - Physician Review All systems were reviewed & negative as marked: Yes - Review of Systems Gastrointestinal: absent: Diarrhea, Nausea, Vomiting Genitourinary Female: Dysuria, Frequency, Other (questionable blood in urine). absent: Vaginal Bleeding, Vaginal Discharge Musculoskeletal: Back Pain (mild lower) Physical Exam Vital Signs Reviewed: Yes Vital Signs Temp Pulse Resp BP Pulse Ox 09/19/17 13:13 72 18 129/80 98 09/19/17 11:29 98.3 F 79 18 131/76 99 Temperature: Afebrile Blood Pressure: Normal Pulse: Regular Respiratory Rate: Normal Appearance: Positive for: Well-Appearing, Non-Toxic, Comfortable Pain Distress: None Mental Status: Positive for: Alert and Oriented X 3 - Systems Exam Head: Present: Atraumatic, Normocephalic Pupils: Present: PERRL Extroacular Muscles: Present: EOMI Conjunctiva: Present: Normal Mouth: Present: Moist Mucous Membranes Neck: Present: Normal Range of Motion Respiratory/Chest: Present: Clear to Auscultation, Good Air Exchange. No: Respiratory Distress, Accessory Muscle Use Cardiovascular: Present: Regular Rate and Rhythm, Normal S1, S2. No: Murmurs Abdomen: No: Tenderness, Distention, Peritoneal Signs Back: Present: Other (mild lower back pain b/l) Upper Extremity: Present: Normal Inspection. No: Cyanosis, Edema Lower Extremity: Present: Normal Inspection. No: Edema Neurological: Present: GCS=15, CN II-XII Intact, Speech Normal Skin: Present: Warm, Dry, Normal Color. No: Rashes Psychiatric: Present: Alert, Oriented x 3, Normal Insight, Normal Concentration Medical Decision Making ED Course and Treatment: 09/19/17 11:40 Impression: A 31 year old female with dysuria, urinary frequency, mild lower back pain and questionable blood in urine. Plan: -- CT abd/pelvis -- labs -- Urinalysis -- Reassess and disposition Prior Visits: Notes and results from previous visits were reviewed. Patient was last seen in the emergency department on 06/09/17 for evaluation of left eyelid swelling. Progress Notes: Creator : Gurinder Harper MD 09/19/17 12:52 CT Abdomen and Pelvis without intravenous contrast FINDINGS: LOWER THORAX: Unremarkable. LIVER: Unremarkable. No gross lesion or ductal dilatation. GALLBLADDER AND BILE DUCTS: Unremarkable. PANCREAS: Unremarkable. No gross lesion or ductal dilatation. SPLEEN: Unremarkable. ADRENALS: Unremarkable. No mass. KIDNEYS AND URETERS: Unremarkable. No hydronephrosis. No solid mass. VASCULATURE: Unremarkable. No aortic aneurysm. BOWEL: Unremarkable. No obstruction. No gross mural thickening. APPENDIX: Unremarkable. Normal appendix. PERITONEUM: There is a small amount of free fluid in the cul-de-sac in the right pericolic gutter LYMPH NODES: Unremarkable. No enlarged lymph nodes. BLADDER: Unremarkable. REPRODUCTIVE: Bilateral ovarian cysts. BONES: No acute fracture. IMPRESSION: Bilateral ovarian cysts.There is a small amount of free fluid in the cul-de-sac in the right pericolic gutter. - Lab Interpretations Lab Results: 09/19/17 12:00 09/19/17 12:00 Lab Results 09/19/17 12:00: Sodium 142, Potassium 3.7, Chloride 108 H, Carbon Dioxide 26, Anion Gap 12, BUN 12, Creatinine 0.9, Est GFR ( Amer) > 60, Est GFR (Non- Af Amer) > 60, Random Glucose 84, Calcium 9.0, Total Bilirubin 0.3, AST 16, ALT 25, Alkaline Phosphatase 32 L, Total Protein 7.1, Albumin 4.4, Globulin 2.7, Albumin/Globulin Ratio 1.7 09/19/17 12:00: WBC 6.0, RBC 3.72, Hgb 11.8 L, Hct 34.8 L, MCV 93.5, MCH 31.7, MCHC 33.9, RDW 14.0, Plt Count 215, MPV 9.7, Gran % 62.7, Lymph % (Auto) 30.1, Divide % (Auto) 6.0, Eos % (Auto) 1.0 L, Baso % (Auto) 0.2, Gran # 3.76, Lymph # ( Auto) 1.8, Divide # (Auto) 0.4, Eos # (Auto) 0.1, Baso # (Auto) 0.01 09/19/17 11:23: Urine Color Yellow, Urine Appearance Clear, Urine pH 6.0, Ur Specific [place] >= 1.030, Urine Protein 30 H, Urine Glucose (UA) Negative, Urine Ketones Negative, Urine Blood Small H, Urine Nitrate Negative, Urine Bilirubin Negative, Urine Urobilinogen 0.2, Ur Leukocyte Esterase Small H, Urine RBC 5 - 10, Urine WBC 5 - 10, Ur Epithelial Cells 6 - 8, Amorphous Sediment Few, Urine Bacteria Many, Urine Other Uyeast I have reviewed the lab results: Yes - RAD Interpretation Radiology Orders: 09/19/17 11:41 ABD & PELVIS W/O PO OR IV CONT [CT] Stat - Scribe Statement The provider has reviewed the documentation as recorded by the Brittany Redmond Provider Scribe Attestation: All medical record entries made by the Scribe were at my direction and personally dictated by me. I have reviewed the chart and agree that the record accurately reflects my personal performance of the history, physical exam, medical decision making, and the department course for this patient. I have also personally directed, reviewed, and agree with the discharge instructions and disposition. Disposition/Present on Arrival - Present on Arrival Any Indicators Present on Arrival: Yes History of DVT/PE: No History of Uncontrolled Diabetes: No Urinary Catheter: No History of Decub. Ulcer: No History Surgical Site Infection Following: None - Disposition Have Diagnosis and Disposition been Completed?: No Diagnosis: UTI (urinary tract infection) Disposition: HOME/ ROUTINE Disposition Time: 12:50 Condition: GOOD Discharge Instructions (ExitCare): Urinary Tract Infection, Adult (DC) Additional Instructions: Thank you for letting us take care of you today. The emergency medical care you received today was directed at your acute symptoms. If you were prescribed any medication, please fill it and take as directed. It may take several days for your symptoms to resolve. Return to the Emergency Department if your symptoms worsen, do not improve, or if you have any other problems. Please contact your doctor or call one of the physicians/clinics you have been referred to that are listed on the Patient Visit Information form that is included in your discharge packet. Bring any paperwork you were given at discharge with you along with any medications you are taking to your follow up visit. Our treatment cannot replace ongoing medical care by a primary care provider (PCP) outside of the emergency department. Thank you for allowing the [facility] team to be part of your care today. Fill the prescription that you already received and take it. Follow up with your primary care doctor in 4-5 days. Referrals: Power Levi MD [Primary Care Provider] - Follow up with primary Forms: [employer] ([employer]), WORK NOTE
== END 2017-09-19 13:24 | disposition home or self-care (01) ==
LOC: ED 11:13
DX: N39.0 Urinary tract infection, site not specified (principal); F17.200 Nicotine dependence, unspecified, uncomplicated